=== PATIENT | male | born 1940 | race Caucasian/White ===

== ENCOUNTER → 2018-07-30 | Outpatient (CLI) | payer MEDICARE | END | disposition home or self-care (01) | LOC: LABWHC1 11:14 | PROVIDERS: ATTEND Orthopaedic Surgery Adult Reconstructive Orthopaedic Surgery | DX: Z01.812 Encounter for preprocedural laboratory examination (principal) | CPT/HCPCS: 87070 ==

== ENCOUNTER → 2021-04-19 | Outpatient (CLI) | payer MEDICARE ==
--- NOTE | 2021-04-19 13:58 | CT ---
EXAMINATION TYPE: CT abdomen pelvis wo con DATE OF EXAM: 04/19/2021 COMPARISON: None HISTORY: Hematuria, right lower quadrant pain. CT DLP: 1375.7 mGycm Examination of the solid and hollow viscera is limited given the lack of contrast. FINDINGS: LUNG BASES: No evidence for nodule. No evidence for infiltrate. LIVER/GB: Uncomplicated cholelithiasis. No space-occupying hepatic lesion. PANCREAS: No pancreatic mass identified. No inflammatory process seen. SPLEEN: No evidence for splenomegaly. No intrasplenic lesions seen. ADRENALS: No adrenal nodules identified. No evidence for thickening. KIDNEYS: No evidence for renal mass. No nephrolithiasis. No hydronephrosis. Urinary bladder demonstra jude multiple diverticula some of which contain dependent debris. BOWEL: Appendix has a normal appearance. No evidence of bowel obstruction. No inflammatory process. Lymph nodes: No evidence for adenopathy greater than 1 cm. Abdominal aorta: Atheromatous changes seen. No evidence for aneurysm. Genital organs: Prostate gland enlargement noted. Other: Bilateral fat-containing inguinal hernias. IMPRESSION: NO ACUTE PROCESS SEEN TO ACCOUNT FOR THE PATIENT'S SYMPTOMS.
[2021-04-19 14:05] LABS: Basophils # (A) 0.1 k/uL (0-0.2); Basophils % (A) 1 %; Eosinophils # (A) 0.2 k/uL (0-0.7); Eosinophils % (A) 2 %; HCT 42.8 % (39.0-53.0); HGB 14.5 gm/dL (13.0-17.5); Lymphocytes # (A) 2.8 k/uL (1.0-4.8); Lymphocytes % (A) 33 %; MCH 31.3 pg (25.0-35.0); MCHC 33.9 g/dL (31.0-37.0); MCV 92.4 fL (80.0-100.0); Mean Platelet Volume 7.8; Monocytes # (A) 0.6 k/uL (0-1.0); Monocytes % (A) 7 %; Neutrophils # (A) 4.7 k/uL (1.3-7.7); Neutrophils % (A) 55 %; Platelet Count 222 k/uL (150-450); RBC 4.64 m/uL (4.30-5.90); RDW 12.9 % (11.5-15.5); WBC 8.4 k/uL (3.8-10.6)
== END | disposition home or self-care (01) ==
LOC: RADCTMAIN 13:17
PROVIDERS: ATTEND Family Medicine
DX: R10.31 Right lower quadrant pain (principal); R31.9 Hematuria, unspecified
CPT/HCPCS: 36415; 74176; 85025

== ENCOUNTER → 2023-02-14 | Outpatient (CLI) | payer MEDICARE ==
--- NOTE | 2023-02-14 08:59 | CT ---
EXAMINATION TYPE: CT lumbar spine wo con DATE OF EXAM: 02/14/2023 COMPARISON: Abdomen CT 04/19/2021 HISTORY: 82-year-old male M54.50 Low back pain with radiation into the lower extremity TECHNIQUE: Contiguous axial scanning of the lumbar spine without IV contrast. Coronal and sagittal re constructions performed. CT DLP: 981 mGycm Automated exposure control for dose reduction was used. FINDINGS: There is straightening of the normal lumbar lordosis. Grade 1 retrolisthesis L4-L5 and trace grade 1 anterolisthesis L2/L3. Remaining alignment is maintained. Slightly heterogeneous marrow density remains unchanged from the 04/19/2021 CT. Given the areas of scl erosis, correlate with PSA values. Moderate multilevel degenerative disc disease, more advanced at L3-S1 levels with a disc height loss, disc osteophyte complex and bulging discs, and vacuum phenomenon. Hypertrophic facet arthropathy is present throughout. At L2-L3, changes result in overall mild spinal canal stenosis with mild bilateral neuroforaminal jhony nosis. At L3-L4, changes result in moderate spinal canal stenosis with mild to moderate bilateral neuroforam inal stenosis. At L4-L5, there is a broad-based disc osteophyte complex. This contributes to at least mild spinal ca nal stenosis with prominent indentation onto the ventral thecal sac. Moderate bilateral neuroforamina l stenosis. At L5-S1, posterior osteophytic ridging and bulging disc. No significant spinal canal stenosis. There is moderate right and [id number] left neuroforaminal stenosis. Right lateral disc osteophyte c omplex may impinge the intraforaminal and extraforaminal right L5 nerve root, axial image 64. Moderate degenerative change of the bilateral SI joints. There appears to be a partial right hemicolectomy sacralization of L5. Sigmoid diverticulosis. IMPRESSION: 1. MODERATE TO ADVANCED MULTILEVEL SPONDYLOTIC CHANGE ESPECIALLY MID TO LOWER LUMBAR SPINE WITH DEGEN ERATIVE GRADE 1 ANTEROLISTHESIS AT L2-L3 AND GRADE 1 RETROLISTHESIS AT L4-L5. STRAIGHTENING OF THE NO RMAL LUMBAR LORDOSIS IS UNCHANGED. 2. At L3-L4, THERE IS MODERATE SPINAL CANAL STENOSIS. AT L2-L3, OVERALL MILD SPINAL CANAL STENOSIS. A T L4-L5, AT LEAST MILD SPINAL CANAL STENOSIS WITH PROMINENT INDENTATION ONTO THE VENTRAL THECAL SAC F ROM BROAD-BASED DISC OSTEOPHYTE COMPLEX. 3. VARIABLE MILD AND MODERATE BILATERAL NEUROFORAMINAL STENOSES OUTLINED ABOVE. 4. THERE IS PARTIAL RIGHT L5 HEMISACRALIZATION. THESE HYPEROSTOTIC CHANGES MAY CONTRIBUTE TO IMPINGEM ENT OF THE INTRAFORAMINAL AND EXTRAFORAMINAL RIGHT L5 NERVE ROOT AT THE L5-S1 LEVEL. CORRELATE FOR AN Y CORRESPONDING RADICULAR SYMPTOMS. 5. SCATTERED HETEROGENEOUS MARROW DENSITY. SIMILAR APPEARANCE FROM 04/19/2021 SUGGESTS A BENIGN ETIOLO GY. CORRELATE WITH PSA VALUES AND NUCLEAR MEDICINE WHOLE-BODY BONE SCAN IF CLINICALLY INDICATED.
== END | disposition home or self-care (01) ==
LOC: RADCTMAIN 08:05
PROVIDERS: ATTEND Family Medicine
DX: M47.816 Spondylosis without myelopathy or radiculopathy, lumbar region (principal); M43.16 Spondylolisthesis, lumbar region; M48.061 Spinal stenosis, lumbar region without neurogenic claudication; M51.36 Other intervertebral disc degeneration, lumbar region; M25.78 Osteophyte, vertebrae
CPT/HCPCS: 72131

== ENCOUNTER → 2023-07-15 | Outpatient (CLI) | payer MEDICARE ==
--- NOTE | 2023-07-15 14:14 | MR ---
EXAMINATION TYPE: MR lumbar spine wo con DATE OF EXAM: 07/15/2023 2:00 PM COMPARISON: 02/14/2023 CLINICAL INDICATION: Male, 82 years old with history of M47.817; PHH, Low back pain that radiates harry n both legs. TECHNIQUE: Multi planar, multi sequence imaging was performed utilizing: T1-weighted, T2-weighted, a nd turbo inversion recovery imaging of the lumbar spine. IV Contrast: None. FINDINGS: Alignment: The lumbar vertebral bodies have preserved heights and straightened alignment. Cord: The conus medullaris and the distal spinal cord appear unremarkable with regards to their signa l intensity and morphology. Bones/Discs: Multilevel degeneration changes are seen throughout the spine with Schmorl's nodes, disc space narrowing, Modic endplate changes and osteophyte. There is multilevel facet arthropathy presen t. Increased inversion cover signal within the L1 vertebral body with Schmorl's node. Scattered disc desiccation is present. L5 vertebral body right transverse process sacralization. T12-L1: No evidence of significant spinal canal stenosis or neural foraminal stenosis. L1-L2: No evidence of significant spinal canal stenosis or neural foraminal stenosis. L2-L3: Disc bulge and facet joint arthropathy result in mild to moderate spinal canal and mild bilate ral neural foraminal stenosis. L3-L4: Disc bulge and facet joint arthropathy result in moderate spinal canal and moderate bilateral neural foraminal stenosis. L4-L5: Disc bulge and facet joint arthropathy result in mild spinal canal and moderate bilateral neur al foraminal stenosis. L5-S1: The disc is rounded posterior morphology without significant spinal canal stenosis. Facet join t arthropathy with moderate neural foraminal stenosis. No significant spinal canal or neural foraminal stenosis in the remainder of the visualized levels. Other findings: Multiple bladder diverticula are partially visualized. Scattered colonic diverticula . IMPRESSION: 1. Acute/subacute L1 inferior endplate Schmorl's node. 2. L3-L4 moderate spinal canal stenosis secondary disc bulge and facet joint arthropathy. 3. Multilevel disc degeneration changes throughout the spine with moderate neural femoral stenosis t hroughout the lower lumbar spine bilaterally. 4. Multiple bladder diverticula partially visualized.
== END | disposition home or self-care (01) ==
LOC: RADMRIMAIN 13:01
PROVIDERS: ATTEND Orthopaedic Surgery
DX: M51.36 Other intervertebral disc degeneration, lumbar region (principal); M47.817 Spondylosis without myelopathy or radiculopathy, lumbosacral region; M48.061 Spinal stenosis, lumbar region without neurogenic claudication; M99.73 Connective tissue and disc stenosis of intervertebral foramina of lumbar region; N32.3 Diverticulum of bladder; M51.46 Schmorl's nodes, lumbar region
CPT/HCPCS: 72148

== ENCOUNTER → 2023-09-04 | Outpatient (CLI) | payer MEDICARE ==
--- NOTE | 2023-09-04 14:51 | P.PAINPG ---
PQRS Measure Charge Sheet Comment: HISTORY OF PRESENT ILLNESS: 82 yr old male as a referral from Dr Conway presents today w severe and chronic LBP x 4 yrs secondary to mod L3-L4 spinal canal stenosis, DDD, spondylosis and facet arthropathy without myelopathy for evaluation. Pt states pain level is provoked at 9 /10 in intensity, constant, localized in the mid to lower lumbar spine, dull in character w shooting pain towards the buttocks and occasionally in the BLEs. Pain is provoked by walking/ standing for periods of 10 min or more. Pain is alleviated by PT x 6 wks in Jul 2023, medications (Aleve), repositioning and rest. Oswestry axial pain score at 17. PMH: OA, HTN, Hyperlipidemia, GERD, BPH PSH: DENIES SH: Negative x3 FH: Non contributory All: See list Meds: See list REVIEW OF ORGAN SYSTEMS: CONSTITUTIONAL: No fevers or chills. No recent weight loss. NEUROLOGICAL: + numbness and tingling along the distal extremities. No seizure disorders or headaches. MUSCULOSKELETAL: + pain PSYCHIATRIC: Denies current depression or suicidal though ts. Physical Examinations : Constitutional : Cooperative , not in acute distress . Neurologic : Cranial nerve II to XII intact. No focal neurological deficits. Psychiatric : alert & oriented x 3. Matching mood & appropriate affect. Judgment & insight intact. Musculoskeletal : Cervical Spine Motor strength in the deltoid and biceps: Normal right side. Normal Left side Motor strength biceps and the wrist extensors: Normal right side . Normal left side Motor strength in the triceps muscle: Normal right side. Normal left side Deep tendon reflexes: Normal at the biceps. Normal at Brachioradialis. Normal at triceps Vertebral body tenderness to deep palpation over Cervical facet loading test: positive bilaterally Spurling test: positive bilaterally Neck distraction test: positive bilaterally Donnie sign: positive bilaterally Lumbar spine Motor strength lower extremities ,thigh and legs 5/5 Right side , 5/5 Left side Deep tendon reflexes : Normal Knee Jerk. Normal Ankle Jerk Vertebral body tenderness over L3 Blanchard Test positive over BL L3-L4 Lumbar facet Loading Test: positive Right / positive Left Range of motion of the lumbar spine Flexion 30 degrees, extension 10 degrees Straight Leg Raise test: Left/ Right positive at degree Afsaneh test: positive right / positive left. Severe tenderness over the Sacroiliac joint on the Right / Left sides Gaenslen test: positive bilaterally Seated flexion test: positive bilaterally. Sacral spine : Severe tenderness over the Sacroiliac joint: right side / left side Range of motion: Flexion of the lumbar spine <60 degrees Range of motion: Extension of the lumbar spine <20 degrees Gaenslen's Test positive Bhargav's Test positive Afsaneh test: positive right side / left side Thigh Thrust Test Sacral Thrust Test Imaging: MRI noncontrast of the lumbar spine from 07/15/23 review Assessment/ Plan : Lumbar DDD, lumbar stenosis Recommendation of DEANA L3-L4 #1. May need a series of injections for optimal pain relief. Risks, benefits of procedure discussed and patient verbalized u nderstanding. Admits to anti- coagulant use or medical history of diabetes. Protocol for discontinuation/ continuation of medications con procedure discussed. Minimal anesthesia provided, if clinically indicated, consisting of Versed and Fentanyl. All questions answered. I have spent greater than 30 minutes on patient care today. Dr Negro was available by phone for the evaluation of this patient. The time was used to review the medical records including relevant urine studies and Prescription history (MAPs), review of the available imaging, evaluation and examination of the patient, coordination of care with the medical staff and if applicable referring physicians, as well as creation of the medical record PQRS Narrative: Smoking Status Never smoker Controlled Substance Measures - Controlled Substance Measures Is patient prescribed a controlled substance at discharge?: No
[2023-09-05 08:28] VITALS: BP 120/73; PULSE 74; RESP 1
== END ==
LOC: PNWHC3 09:56
PROVIDERS: ATTEND Specialist
DX: M54.50 Low back pain, unspecified (principal); M51.36 Other intervertebral disc degeneration, lumbar region; M48.061 Spinal stenosis, lumbar region without neurogenic claudication; M19.90 Unspecified osteoarthritis, unspecified site; I10 Essential (primary) hypertension; E78.5 Hyperlipidemia, unspecified; K21.9 Gastro-esophageal reflux disease without esophagitis; N40.0 Benign prostatic hyperplasia without lower urinary tract symptoms; Z79.899 Other long term (current) drug therapy
CPT/HCPCS: 99211

== ENCOUNTER 2023-09-23 11:41 | Day surgery (SDC) | payer MEDICARE ==
[~2023-09-23 11:41] MED LIST: LACTATED RINGERS 1,000 ML IV SCH
[2023-09-23 12:18] VITALS: TEMP 97.6
[2023-09-23] MEDS ORDERED: IOPAMIDOL M200 10 ML VIAL ONE (12:27)
[2023-09-23] MEDS ORDERED: methylPREDNISolone ACETATE 40 MG/ML 1 ML VIAL ONE (12:27)
--- NOTE | 2023-09-23 12:34 | P.PCN ---
Date of Procedure: 09/23/23 Description of Procedure: PREOPERATIVE DIAGNOSIS: lumbar radiculopathy POSTOPERATIVE DIAGNOSIS: Lumbar radiculopathy PROCEDURE 1. Lumbar epidural steroid injection under fluoroscopic guidance at the L 3/4 level. 2. Lumbar epidurogram. Imaging: Fluoroscopy was used, images where saved to the medical record ANESTHESIA: LOCAL ONLY EBL: Minimal PROCEDURE INDICATION: The patient with low back pain and radiculitis symptoms unresponsive to conservative treatment. Fluoroscopy was used to optimize visualization of the needle placement and to maximize safety. PROCEDURE DESCRIPTION / TECHNIQUE: The patient was seen and identified in the preoperative area. Risks, benefits, complications including but not limited to infections, bleeding, allergic re action to medications, nerve damage and incomplete pain relief, as well as alternatives to the procedure were discussed with the patient. The patient agreed to proceed with the procedure and signed the consent. IV was started if indicated above, and vital signs were stable. Patient was taken to the OR and time out was completed. The patient was placed in the prone position on procedure table and a pillow was placed under the abdomen to reduce lumbar lordosis. The lumbosacral area was prepped and draped in the usual sterile fashion. Vitals were closely monitored during the procedure. Using anterior-posterior fluoroscopy, the L 3/4 interlaminar space was identified and the skin over this site was marked and then infiltrated with 1% lidocaine subcutaneously. Subsequently, a 20-gauge Tuohy epidural needle was inserted and advanced toward the epidural space using the Loss of resistance technique and guided by AP and lateral fluoroscopy. The correct needle position in the epidural space was verified with the injection of 1 mL of Omnipaque 180 contrast to observe an acceptable epidurogram, after negative aspiration for blood and CSF and in the absence of paresthesias. Again after negative aspiration, a 3 ml mixture containing 40mg of depomedrol and 2 ml of preservative free Normal Saline was injected and a washout of epidurogram was seen. Needle was withdrawn intact, skin was cleansed, and bandages were applied. COMPLICATIONS: None DISPOSITION / PLANS: The patient was placed in a supine position and transferred to the recovery area in a stable condition for observation. There was no evidence of lower extremity motor or sensory deficit after the procedure. Patient was discharged from the recovery room after meeting discharge criteria. Home discharge instructions were given to the patient by the staff. The patient was reexamined prior to discharge. The patient will follow up as directed.
--- NOTE | 2023-09-23 12:52 | FL ---
Fluoroscopy History: LESI dap [id number] fl 2.[address] milton
[2023-09-23 12:58] VITALS: BP 127/76; PULSE 85; RESP 16
== END 2023-09-23 13:03 | disposition home or self-care (01) ==
LOC: ORPAIN 11:41
PROVIDERS: ATTEND Hospitalist
DX: M54.16 Radiculopathy, lumbar region (principal)
CPT/HCPCS: 62323; J1030; Q9966

== ENCOUNTER → 2023-10-22 | Outpatient (CLI) | payer MEDICARE ==
[2023-10-22 11:18] VITALS: BP 104/65; PULSE 87; RESP 15; TEMP 89.4
--- NOTE | 2023-10-22 15:04 | P.PAINPG ---
PQRS Measure Charge Sheet Comment: HISTORY OF PRESENT ILLNESS: 82 yr old male presents today w severe and chronic LBP x 4 yrs secondary to mod L3-L4 spinal canal stenosis, DDD, spondylosis and facet arthropathy without myelopathy for evaluation s/p DEANA L3-L4 #1. Pt states he experienced 40% pain relief x 1 wks s/p procedure. Pt states pain level is provoked at 6/10 in intensity, constant, localized in the mid to lower lumbar spine, predominantly axial, sharp in character w shooting pain towards the buttocks and occasionally in the BLEs. Pain is provoked by walking/ standing for periods of 10 min or more. Pain is alleviated by PT x 6 wks in Jul 2023, medications, repositioning and rest. Oswestry axial pain score at 17. Interventional procedures include DEANA L3-L4 x1 Medications include Aleve REVIEW OF ORGAN SYSTEMS: CONSTITUTIONAL: No fevers or chills. No recent weight loss. NEUROLOGICAL: + numbness and tingling along the distal extremities. No seizure disorders or headaches. MUSCULOSKELETAL: + pain PSYCHIATRIC: Denies current depression or suicidal thoughts. Physical Examinations : Constitutional : Cooperative , not in acute distress . Neurologic : Cranial nerve II to XII intact. No focal neurological deficits. Psychiatric : alert & oriented x 3. Matching mood & appropriate affect. Judgment & insight intact. Musculoskeletal : Cervical Spine Motor strength in the deltoid and biceps: Normal right side. Normal Left side Motor strength biceps and the wrist extensors: Normal right side . Normal left side Motor strength in the triceps muscle: Normal right side. Normal left side Deep tendon reflexes: Normal at the biceps. Normal at Brachioradialis. Normal at triceps Vertebral body tenderness to deep palpation over Cervical facet loading test: positive bilaterally Spurling test: positive bilaterally Neck distraction test: positive b ilaterally Donnie sign: positive bilaterally Lumbar spine Motor strength lower extremities ,thigh and legs 5/5 Right side , 5/5 Left side Deep tendon reflexes : Normal Knee Jerk. Normal Ankle Jerk Vertebral body tenderness Blanchard Test positive Lumbar facet Loading Test: positive Right / positive Left over L4-L5, L5-S1 Range of motion of the lumbar spine Flexion 30 degrees, extension 10 degrees Straight Leg Raise test: Left/ Right positive at degree Afsaneh test: positive right / positive left. Severe tenderness over the Sacroiliac joint on the Right / Left sides Gaenslen test: positive bilaterally Seated flexion test: positive bilaterally. Sacral spine : Severe tenderness over the Sacroiliac joint: right side / left side Range of motion: Flexion of the lumbar spine <60 degrees Range of motion: Extension of the lumbar spine <20 degrees Gaenslen's Test positive Bhargav's Test positive Afsaneh test: positive right side / l eft side Thigh Thrust Test Sacral Thrust Test Imaging: MRI noncontrast of the lumbar spine from 07/15/23 review Assessment/ Plan : Lumbar DDD, lumbar stenosis Recommendation of BL MBB L4-L5, L5-S1 #1. May need a series of injections, up until RFA, for optimal pain relief. Risks, benefits of procedure discussed and p atient verbalized understanding. Admits to anti- coagulant use or medical history of diabetes. Protocol for discontinuation/ continuation of medications con procedure discussed. Minimal anesthesia provided, if clinically indicated, consisting of Versed and Fentanyl. All questions answered. I have spent greater than 30 minutes on patient care today. Dr Negro was available by phone for the evaluation of this patient. The time was used to review the medical records including relevant urine studies and Prescription history (MAPs), review of the available imaging, evaluation and examination of the patient, coordination of care with the medical staff and if applicable referring physicians, as well as creation of the medical record PQRS Narrative: Smoking Status Never smoker Hx Alcohol Use (MH) No Home Medications: Ambulatory Orders Omeprazole 20 PO [id number]-[id number] 09/05/23 Pravastatin Sodium 80 mg PO DAILY 09/05/23 Tamsulosin HCl [Flomax] 0.4 mg PO 09/05/23 Triamcinolone 0.1% Cream [Kenalog 0.1% Cream] 1 applicatio TOPICAL BID 09/05/23 hydroCHLOROthiazide 25 mg PO 09/05/23 lisinopriL [Prinivil] 10 mg PO DAILY 09/05/23 Controlled Substance Measures - Controlled Substance Measures Is patient prescribed a controlled substance at discharge?: No
== END ==
LOC: PNWHC3 10:12
PROVIDERS: ATTEND Specialist
DX: M51.37 Other intervertebral disc degeneration, lumbosacral region (principal); M48.061 Spinal stenosis, lumbar region without neurogenic claudication
CPT/HCPCS: 99211

== ENCOUNTER 2023-11-11 08:13 | Day surgery (SDC) | payer MEDICARE ==
[2023-11-11] MEDS ORDERED: LIDOCAINE 1% (10MG/ML) FOR IV START INTRADERMA ONE (08:47)
[2023-11-11 08:58] VITALS: TEMP 97.2
[2023-11-11] MEDS ORDERED: ROPIVACAINE 5MG/ML 20ML VIAL ONE (09:01)
[2023-11-11] MEDS ORDERED: MIDAZOLAM 2 MG/2 ML VIAL ONE (09:01)
--- NOTE | 2023-11-11 09:09 | P.PCN ---
Date of Procedure: 11/11/23 Operative Findings: Procedure: BILATERAL L4-5, L5-S1 #1 Diagnosis: Lumbar spondylosis without myelopathy ANESTHESIA: Medication Administered by: Nurse Sedation Type: moderate sedation Sedation Supervision start time: 900 Sedation Supervision end time: 906 Imaging: Fluoroscopy was used, images where saved to the medical record The patient was seen and examined in the PO. Procedure risks and benefits were fully reviewed with the patient. The patient understands this is diagnostic if local only is used, as will be the case today. The goal of the procedure is to inject medication onto the medial branch or small nerves that innervate the facet joints. In this way, we can hopefully identify which of these joints, if any, may be contributing to their pain. Informed consent for procedure was obtained. The patient was taken into the office fluoroscopy procedure room and placed prone on the table. A pillow was placed under the abdomen to reduce lumbar lordosis. Vital signs were closely monitored during the procedure. The skin over the area was prepped with Betadine X 3 and draped in usual sterile manner. Sterile technique was observed throughout procedure. Under biplanar fluoroscopic guidance, the target injection area of the L4, L5, Sacral Ala were targeted. A 25 gauge 3 1/2 inch spinal needle was then placed at the most medial and superior aspect of the transverse process near the "eye of the Justyn dog". Aspiration for blood was negative. 1 cc of 0.5% Ropivacaine was injected into the targeted areas separately. [place] were withdrawn intact. No complications were noted during the procedure. The patient tolerated the procedure well. The patient was placed in supine position and transferred to the recovery area for observation and remained stable until discharged home. Home discharge instructions were given to the patient by the staff. The patient will schedule a follow up as directed I explained the procedure in detail to the patient in PRE OP area, he is familiar and will document the pain diary.
--- NOTE | 2023-11-11 09:21 | FL ---
EXAMINATION TYPE: FL guided pain mgmt statistic DATE OF EXAM: 11/11/2023 HISTORY: Fluoroscopy time Total dose area product (DAP) in uGy*m?, mGy*cm? (or similar): 0.23092 IMPRESSION: 1. Fluoroscopy time.
[2023-11-11 09:51] VITALS: BP 119/76; PULSE 76; RESP 20
== END 2023-11-11 09:43 | disposition home or self-care (01) ==
LOC: ORPAIN 08:13
PROVIDERS: ATTEND Hospitalist
DX: M47.816 Spondylosis without myelopathy or radiculopathy, lumbar region (principal)
CPT/HCPCS: 64493; 64494 ×2; 99152; J2250; J2795

== ENCOUNTER → 2023-12-11 | Outpatient (CLI) | payer MEDICARE ==
[2023-12-11 10:52] VITALS: BP 138/76; PULSE 76; RESP 15; TEMP 98.5
--- NOTE | 2023-12-11 14:51 | P.PAINPG ---
PQRS Measure Charge Sheet Comment: HISTORY OF PRESENT ILLNESS: An 83 yr old male presents today w severe and chronic LBP x 4 yrs secondary to mod L3-L4 spinal canal stenosis, DDD, spondylosis and facet arthropathy without myelopathy for evaluation s/p BL MBB L3-L5 #1. Pt states he experienced 80% pain relief x 7 days s/p procedure. Pt states pain level is provoked at 6-7/10 in intensity, constant, localized in the mid to lower lumbar spine, predominantly axial, sharp in character w occasional shooting pain towards the buttocks and hips. Pain is provoked by walking/ standing for periods of 10 min or more. Pain is alleviated by PT x 6 wks in Jul 2023, medications, repositioning and rest. Oswestry axial pain score at 16. Interventional procedures include DEANA L3-L4 x1, BL MBB L3-L5 x1 Medications include Aleve REVIEW OF ORGAN SYSTEMS: CONSTITUTIONAL: No fevers or chills. No recent weight loss. NEUROLOGICAL: + numbness and tingling along the distal extremities. No seizure disorders or headaches. MUSCULOSKELETAL: + pain PSYCHIATRIC: Denies current depression or suicidal thoughts. Physical Examinations : Constitutional : Cooperative , not in acute distress . Neurologic : Cranial nerve II to XII intact. No focal neurological deficits. Psychiatric : alert & oriented x 3. Matching mood & appropriate affect. Judgment & insight intact. Musculoskeletal : Cervical Spine Motor strength in the deltoid and biceps: Normal right side. Normal Left side Motor strength biceps and the wrist extensors: Normal right side . Normal left side Motor strength in the triceps muscle: Normal right side. Normal left side Deep tendon reflexes: Normal at the biceps. Normal at Brachioradialis. Normal at triceps Vertebral body tenderness to deep palpation over Cervical facet loading test: positive bilaterally Spurling test: positive bilaterally Neck distraction test: positive bilaterally Donnie sign: positive bilaterally Lumbar spine Motor strength lower extremities ,thigh and legs 5/5 Right side , 5/5 Left side Deep tendon reflexes : Normal Knee Jerk. Normal Ankle Jerk Vertebral body tenderness Blanchard Test positive Lumbar facet Loading Test: positive Right / positive Left over L4-L5, L5-S1 Range of motion of the lumbar spine Flexion 30 degrees, extension 10 degrees Straight Leg Raise test: Left/ Right positive at degree Afsaneh test: positive right / positive left. Severe tenderness over the Sacroiliac joint on the Right / Left sides Gaenslen test: positive bilaterally Seated flexion test: positive bilaterally. Sacral spine : Severe tenderness over the Sacroiliac joint: right side / left side Range of motion: Flexion of the lumbar spine <60 degrees Range of motion: Extension of the lumbar spine <20 degrees Gaenslen's Test positive Bhargav's Test positive Afsaneh test: positive right side / left side Thigh Thrust Test Sacral Thrust Test Imaging: MRI noncontrast of the lumbar spine from 07/15/23 review Assessment/ Plan : Lumbar DDD, lumbar stenosis Recommendation of BL MBB L4-L5, L5-S1 #2. May need a series of injections, up until RFA, for optimal pain relief. Risks, benefits of procedure discussed and patient verbalized understanding. Admits to anti- coagulant use or medical history of diabetes. Protocol for discontinuation/ continuation of medications con procedure discussed. Minimal anesthesia provided, if clinically indicated, consisting of Versed and Fentanyl. May benefit from a BL TFESI at a later time. All questions answered. I have spent greater than 30 minutes on patient care today. Dr Negro was available by phone for the evaluation of this patient. The time was used to review the medical records including relevant urine studies and Prescription history (MAPs), review of the available imaging, evaluation and examination of the patient, coordination of care with the medical staff and if applicable referring physicians, as well as creation of the medical record PQRS Narrative: Smoking Status Never smoker Hx Alcohol Use (MH) No Home Medications: Ambulatory Orders Omeprazole 20 mg PO AC-BRKFST 09/05/23 Pravastatin Sodium 80 mg PO HS 09/05/23 Tamsulosin HCl [Flomax] 0.4 mg PO QAM 09/05/23 Triamcinolone 0.1% Cream [Kenalog 0.1% Cream] 1 applicatio TOPICAL BID 09/05/23 hydroCHLOROthiazide 25 mg PO QAM 09/05/23 lisinopriL [Prinivil] 10 mg PO QAM 09/05/23 Naproxen Sodium [Aleve] 440 mg PO QAM 11/10/23 Controlled Substance Measures - Controlled Substance Measures Is patient prescribed a controlled substance at discharge?: No
== END ==
LOC: PNWHC3 10:12
PROVIDERS: ATTEND Specialist
DX: M51.36 Other intervertebral disc degeneration, lumbar region (principal); M48.061 Spinal stenosis, lumbar region without neurogenic claudication
CPT/HCPCS: 99211

== ENCOUNTER 2024-01-02 07:51 | Day surgery (SDC) | payer MEDICARE ==
[2023-12-29 15:45] VITALS: BMI 32.7
[2024-01-02 08:11] VITALS: TEMP 98.3
[2024-01-02] MEDS: LACTATED RINGERS 1,000 ML IV SCH ×2 (08:16→08:36)
[2024-01-02] MEDS ORDERED: MIDAZOLAM 2 MG/2 ML VIAL ONE (08:38)
[2024-01-02] MEDS ORDERED: fentaNYL (PF) 50 MCG/ML 2 ML AMP ONE (08:38)
[2024-01-02] MEDS ORDERED: ROPIVACAINE 5MG/ML 20ML VIAL ONE (08:41)
[2024-01-02] MEDS ORDERED: LACTATED RINGERS 1,000 ML IV ONE (09:05)
[2024-01-02 09:13] VITALS: BP 113/69; PULSE 74; RESP 16
--- NOTE | 2024-01-02 09:35 | FL ---
EXAMINATION TYPE: FL guided pain mgmt statistic Intraoperative/procedural fluoroscopic services were provided. Total fluoroscopy time is 39.6 seconds with a total of 4 submitted images to PACS. Please s ee the operative/procedural note for further details. DAP: 0.2992 mGym2
--- NOTE | 2024-01-02 10:06 | P.PCN ---
Description of Procedure: Preprocedure diagnosis. 1. Lumbar spondylosis with facet joint arthropathy without myelopathy. 2. Lumbar degenerative disc disease. Postprocedure diagnosis. As above. Procedure done. Bilateral diagnostic block with local anesthetics at L3, L4, L5 medial branch to target the facet joint L4- 5 and L5-S1 with fluoroscopic guidance (fluoroscopy images are available in the radiology department) . Anesthesia. As per anesthesia department. In OR, continuous pulse ox, EKG, blood pressure and verbal communication was maintained. Blood loss. Minimal. Indication. The patient has low back pain secondary to lumbar facet joint arthropathy. Discussed the procedure and alternative and complications which includes infection, bleeding, nerve damage, paralysis ,aggravation of pain. Patient understands and all questions were answered. Patient iunderstands that if any pain relief occurs it will last for a few hours to a few days maximum. Procedure description. After getting consent patient was taken in the OR in prone position. Back prepped with chlorhexidine and draped in sterile fashion. After injecting 5 mL of plain 1% lidocaine subcutaneously, a 22-gauge spinal needle was introduced under tunnel vision of the fluoroscope at the junction of the superior articular process with RIGHT ala of the sacrum. With slight oblique fluoroscope, after injecting 5 mL of plain 1% lidocaine subcutaneously, a 22-gauge spinal needle was introduced under tunnel vision of the fluoroscope at the junction of the superior articular process with RIGHT L5 transverse process, junction of the superior articular process with the RIGHT L4 transverse process. Negative CSF, negative blood, negative paresthesia. After needle po sition confirmation by AP and crosstable lateral view, after negative aspiration, half milliliters of 0.5% ropivacaine were injected at each point. In exactly same way, LEFT sided injections were done at the following 3 points. Junction of the superior articular process with left ala of the sacrum, junction of the superior articular process with the left L5 transverse process, junction of the superior articular process with left L4 transverse process using 0.5 mL of 0.5% preservative-free ropivacaine at each point. Spinal needles were taken out and bandages were applied. Disposition. Patient tolerated the procedure well. No complication. Discharged home in stable condition.
== END 2024-01-02 09:38 | disposition home or self-care (01) ==
LOC: ORPAIN 07:51
PROVIDERS: ATTEND Pain Medicine Interventional Pain Medicine
DX: M51.36 Other intervertebral disc degeneration, lumbar region (principal); M47.816 Spondylosis without myelopathy or radiculopathy, lumbar region; I10 Essential (primary) hypertension; E78.5 Hyperlipidemia, unspecified; I63.9 Cerebral infarction, unspecified; Z98.890 Other specified postprocedural states; Z79.899 Other long term (current) drug therapy
CPT/HCPCS: 64494 ×2; 64493; 99152; J2250; J3010; J2795

== ENCOUNTER → 2024-01-22 | Outpatient (CLI) | payer MEDICARE ==
[2024-01-22 11:39] VITALS: BP 115/71; PULSE 58; RESP 16; TEMP 97.7
--- NOTE | 2024-01-22 14:38 | P.PAINPG ---
PQRS Measure Charge Sheet Comment: HISTORY OF PRESENT ILLNESS: An 83 yr old male presents today w severe and chronic LBP x 4 yrs secondary to mod L3-L4 spinal canal stenosis, DDD, spondylosis and facet arthropathy without myelopathy for evaluation s/p BL MBB L3-L5 #2. Pt states he experienced 80% pain relief x 10 days s/p procedure. Pt states pain level is provoked at 6 /10 in intensity, constant, localized in the mid to lower lumbar spine, predominantly axial, sharp in character w occasional shooting pain towards the buttocks and hips. Pain is provoked by walking/ standing for periods of 10 min or more. Pain is alleviated by PT x 6 wks in Jul 2023, medications, repositioning and rest. Oswestry axial pain score at 16. Interventional procedures include DEANA L3-L4 x1, BL MBB L3-L5 x2 Medications include Aleve REVIEW OF ORGAN SYSTEMS: CONSTITUTIONAL: No fevers or chills. No recent weight loss. NEUROLOGICAL: + numbness and tingling along the distal extremities. No seizure disorders or headaches. MUSCULOSKELETAL: + pain PSYCHIATRIC: Denies current depression or suicidal thoughts. Physical Examinations : Constitutional : Cooperative , not in acute distress . Neurologic : Cranial nerve II to XII intact. No focal neurological deficits. Psychiatric : alert & oriented x 3. Matching mood & appropriate affect. Judgment & insight intact. Musculoskeletal : Cervical Spine Motor strength in the deltoid and biceps: Normal right side. Normal Left side Motor strength biceps and the wrist extensors: Normal right side . Normal left side Motor strength in the triceps muscle: Normal right side. Normal left side Deep tendon reflexes: Normal at the biceps. Normal at Brachioradialis. Normal at triceps Vertebral body tenderness to deep palpation over Cervical facet loading test: positive bilaterally Spurling test: positive bilaterally Neck distraction test: positive bilaterally Donnie sign: positive bilaterally Lumbar spine Motor strength lower extremities ,thigh and legs 5/5 Right side , 5/5 Left side Deep tendon reflexes : Normal Knee Jerk. Normal Ankle Jerk Vertebral body tenderness Blanchard Test positive Lumbar facet Loading Test: positive Right / positive Left over L4-L5, L5-S1 Range of motion of the lumbar spine Flexion 30 degrees, extension 10 degrees Straight Leg Raise test: Left/ Right positive at degree Afsaneh test: positive right / positive left. Severe tenderness over the Sacroiliac joint on the Right / Left sides Gaenslen test: positive bilaterally Seated flexion test: positive bilaterally. Sacral spine : Severe tenderness over the Sacroiliac joint: right side / left side Range of motion: Flexion of the lumbar spine <60 degrees Range of motion: Extension of the lumbar spine <20 degrees Gaenslen's Test positive Bhargav's Test positive Afsaneh test: positive right side / left side Thigh Thrust Test Sacral Thrust Test Imaging: MRI noncontrast of the lumbar spine from 07/15/23 review Assessment/ Plan : Lumbar DDD, lumbar stenosis Recommendation of BL RFA L4-L5, L5-S1. Exhibited optimal pain relief w prior BL MBBs of the lumar spine. Risks, benefits of procedure discussed and patient verbalized understanding. Admits to anti- coagulant use or medical history of diabetes. Protocol for discontinuation/ continuation of medications con procedure discussed. Minimal anesthesia provided, if clinically indicated, consisting of Versed and Fentanyl. May benefit from a BL TFESI at a later time. All questions answered. I have spent greater than 30 minutes on patient care today. Dr Negro was available by phone for the evaluation of this patient. The time was used to review the medical records including relevant urine studies and Prescription history (MAPs), review of the available imaging, evaluation and examination of the patient, coordination of care with the medical staff and if applicable referring physicians, as well as creation of the medical record PQRS Narrative: Smoking Status Never smoker Hx Alcohol Use (MH) No Home Medications: Ambulatory Orders Omeprazole 20 mg PO AC-BRKFST 09/05/23 Pravastatin Sodium 80 mg PO HS 09/05/23 Tamsulosin HCl [Flomax] 0.4 mg PO QAM 09/05/23 hydroCHLOROthiazide 25 mg PO QAM 09/05/23 lisinopriL [Prinivil] 10 mg PO QAM 09/05/23 Naproxen Sodium [Aleve] 440 mg PO QAM 11/10/23 Controlled Substance Measures - Controlled Substance Measures Is patient prescribed a controlled substance at discharge?: No
== END ==
LOC: PNWHC3 10:14
PROVIDERS: ATTEND Specialist
DX: M51.37 Other intervertebral disc degeneration, lumbosacral region (principal); M48.061 Spinal stenosis, lumbar region without neurogenic claudication
CPT/HCPCS: 99211

== ENCOUNTER 2024-02-06 09:24 | Day surgery (SDC) | payer MEDICARE ==
[2024-02-06] MEDS: LACTATED RINGERS 1,000 ML IV SCH (09:48)
[2024-02-06 10:39] VITALS: RESP 16; TEMP 97.5
[2024-02-06] MEDS ORDERED: fentaNYL (PF) 50 MCG/ML 2 ML AMP ONE (10:48)
[2024-02-06] MEDS ORDERED: ROPIVACAINE 5MG/ML 20ML VIAL ONE (10:50)
[2024-02-06] MEDS ORDERED: methylPREDNISolone ACETATE 40 MG/ML 1 ML VIAL ONE (10:50)
--- NOTE | 2024-02-06 11:13 | P.PCN ---
Date of Procedure: 02/06/24 Procedure(s) Performed: PREOPERATIVE DIAGNOSIS: 1-Lumbar Spondylosis with Facet Arthropathy without myelopathy. 2- Lumber degenerative disc disease. POSTOPERATIVE DIAGNOSIS: 1- Lumbar Spondylosis with Facet Arthropathy without myelopathy. 2- Lumber degenerative disc disease. PROCEDURES : Bilateral Radiofrequency thermocoagulation, L3, L4,L5 medial branch, with fluoroscopic guidance (fluoroscopy images available in the radiology department) ( to denervate the facet joint at bilateral L4-5 ,and L5- S1 levels ). ANESTHESIA: Monitored anesthesia care as per anesthesia department . EBL: Minimal PROCEDURE INDICATION: The patient with low back pain secondary to lumbar facet arthropathy who had more than 50% relief of her pain with previous diagnostic lumbar medial branch block with bupivacaine. PROCEDURE DESCRIPTION / TECHNIQUE: The patient was seen and identified in the preoperative area. Risks, benefits, complications, including but not limited to risk of infection ,bleeding , allergic reactions to the medications and no complete pain releife , and alternatives were discussed with the patient, the patient agreed to proceed with the procedure and signed the consent. IV was started. Vital signs remained stable throughout the procedure. Patient was taken to the OR and time out was completed. The patient was placed in the prone position on the procedure table. The lumber area was prepped and draped in the usual sterile fashion. . Vital signs were closely monitored during the procedure .IV sedation was used during the procedure to decrease patients anxiety. Using AP and then oblique fluoroscopy, the ``eye of the Justyn dog corresponding to the connection between the superior and transverse articular processes of right L3, L4, and L5 were identified, marked, and localized with 1% lidocaine. Subsequently, a [id number] radiofrequency cannula with a 10- mm active tip was advanced guided by fluoroscopy to each of the``eyes of the Justyn dog at right L3, L4, and L5. Each site then underwent sensory testing at 50 Hz and 0 to 1 volt and motor testing at 2.5 Hz and 0 to 3 volt with local stimulation, but no radicular symptoms down the legs. Thereafter each sites underwent radiofrequency thermocoagulation at 80 degrees celsius for 90 seconds after injecting 0.5 ml of PF Ropivacaine 1ml, then after the thermocoagulation done , 1 ml of the block solution containing Depo-Medrol 20 mg and 3 ml of Ropivacaine 0.5% was injected at the right L3 , L4 , and L5 , levels after negative aspiration of CSF and blood and with no paresthesias. Cannulas were retracted while injecting lidocaine 1% until the needle is out. The same procedure was repeated at the level of Left L3, L4, and L5 levels. At the end of the procedure, the skin was cleansed and bandages were applied. COMPLICATIONS: No acute complications. DISPOSITION / PLANS: The patient was placed in a supine position and transferred to the recovery area in a stable condition for observation and was discharged from the recovery room after meeting discharge criteria. Home discharge instructions given to the patient by the staff. The patient was reexamined prior to discharge. The patient will schedule a follow up in the clinic in 2-4 weeks.
[2024-02-06] MEDS: IV FLUID CONTINUATION 700 ML IV ONE (11:17)
[2024-02-06] MEDS ORDERED: ONDANSETRON 4 MG/2 ML VIAL ONE (11:49)
[2024-02-06] MEDS: ONDANSETRON 4 MG/2 ML VIAL IVP ONE (11:51)
--- NOTE | 2024-02-06 12:09 | FL ---
EXAMINATION TYPE: FL guided pain mgmt statistic DATE OF EXAM: 02/06/2024 FLUOROSCOPY Fluoroscopy time of 11 seconds was used during bilateral lumbar radiofrequency ablation. 7 image/s d ocument/s the procedure. .[id number] mGycm2 DAP
[2024-02-06 12:20] VITALS: BP 107/72; PULSE 68
== END 2024-02-06 12:37 | disposition home or self-care (01) ==
LOC: ORPAIN 09:24
PROVIDERS: ATTEND Specialist
DX: M47.816 Spondylosis without myelopathy or radiculopathy, lumbar region (principal); M51.36 Other intervertebral disc degeneration, lumbar region; I10 Essential (primary) hypertension; E78.5 Hyperlipidemia, unspecified; N40.0 Benign prostatic hyperplasia without lower urinary tract symptoms; Z86.73 Personal history of transient ischemic attack (TIA), and cerebral infarction without residual deficits; Z79.899 Other long term (current) drug therapy
CPT/HCPCS: 64635; 64636 ×2; J1030; J2405; J3010; J2795; 99152

== ENCOUNTER → 2024-02-25 | Outpatient (CLI) | payer MEDICARE ==
[2024-02-25 12:10] VITALS: BP 142/86; PULSE 89; RESP 15; TEMP 97.6
--- NOTE | 2024-02-25 14:39 | P.PAINPG ---
PQRS Measure Charge Sheet Comment: HISTORY OF PRESENT ILLNESS: An 83 yr old male presents today w severe and chronic LBP x 4 yrs secondary to mod L3-L4 spinal canal stenosis, DDD, spondylosis and facet arthropathy without myelopathy for evaluation s/p BL RFAL3-L5. Pt states he experienced 90 % pain relief s/p procedure. Pt states pain level is provoked at 1 /10 in intensity, constant, localized in the mid to lower lumbar spine, predominantly axial, sharp in character w occasional shooting pain towards the buttocks and hips. Pain is provoked by walking/ standing for periods of 10 min or more. Pain is alleviated by PT x 6 wks in Jul 2023, medications, repositioning and rest. Oswestry axial pain score at 11. Interventional procedures include DEANA L3-L4 x1, BL RFA L3-L5 (Jan 2024) Medications include Aleve REVIEW OF ORGAN SYSTEMS: CONSTITUTIONAL: No fevers or chills. No recent weight loss. NEUROLOGICAL: + numbness and tingling along the distal extremities. No seizure disorders or headaches. MUSCULOSKELETAL: + pain PSYCHIATRIC: Denies current depression or suicidal thoughts. Physical Examinations : Constitutional : Cooperative , not in acute distress . Neurologic : Cranial nerve II to XII intact. No focal neurological deficits. Psychiatric : alert & oriented x 3. Matching mood & appropriate affect. Judgment & insight intact. Musculoskeletal : Cervical Spine Motor strength in the deltoid and biceps: Normal right side. Normal Left side Motor strength biceps and the wrist extensors: Normal right side . Normal left side Motor strength in the triceps muscle: Normal right side. Normal left side Deep tendon reflexes: Normal at the biceps. Normal at Brachioradialis. Normal at triceps Vertebral body tenderness to deep palpation over Cervical facet loading test: positive bilaterally Spurling test: positive bilaterally Neck distraction test: positive bilaterally Donnie sign: positive bilaterally Lumbar spine Motor strength lower extremities ,thigh and legs 5/5 Right side , 5/5 Left side Deep tendon reflexes : Normal Knee Jerk. Normal Ankle Jerk Vertebral body tenderness Blanchard Test positive Lumbar facet Loading Test: positive Right / positive Left Range of motion of the lumbar spine Flexion 30 degrees, extension 10 degrees Straight Leg Raise test: Left/ Right positive at degree Afsaneh test: positive right / positive left. Severe tenderness over the Sacroiliac joint on the Right / Left sides Gaenslen test: positive bilaterally Seated flexion test: positive bilaterally. Sacral spine : Severe tenderness over the Sacroiliac joint: right side / left side Range of motion: Flexion of the lumbar spine <60 degrees Range of motion: Extension of the lumbar spine <20 degrees Gaenslen's Test positive Bhargav's Test positive Afsaneh test: positive right side / left side Thigh Thrust Test Sacral Thrust Test Imaging: MRI noncontrast of the lumbar spine from 07/15/23 review Assessment/ Plan : Lumbar DDD, lumbar stenosis Will manage residual pain and may RTC on an as needed basis. May benefit from a BL TFESI at a later time. All questions answered. I have spent greater than 30 minutes on patient care today. Dr Negro was available by phone for the evaluation of this patient. The time was used to review the medical records including relevant urine studies and Prescription history (MAPs), review of the available imaging, evaluation and examination of the patient, coordination of care with the medical staff and if applicable referring physicians, as well as creation of the medical record PQRS Narrative: Smoking Status Never smoker Hx Alcohol Use (MH) No Home Medications: Ambulatory Orders Omeprazole 20 mg PO AC-BRKFST 09/05/23 Pravastatin Sodium 80 mg PO HS 09/05/23 Tamsulosin HCl [Flomax] 0.4 mg PO QAM 09/05/23 hydroCHLOROthiazide 25 mg PO QAM 09/05/23 lisinopriL [Prinivil] 10 mg PO QAM 09/05/23 Naproxen Sodium [Aleve] 440 mg PO QAM 11/10/23 Controlled Substance Measures - Controlled Substance Measures Is patient prescribed a controlled substance at discharge?: No
== END ==
LOC: PNWHC3 10:39
PROVIDERS: ATTEND Specialist
DX: M51.36 Other intervertebral disc degeneration, lumbar region (principal); M48.061 Spinal stenosis, lumbar region without neurogenic claudication
CPT/HCPCS: 99211